=== PATIENT | male | born 1960 | race Caucasian/White ===

== ENCOUNTER 2017-07-05 18:05 | Emergency (ER) | payer BC ==
[2017-07-05] MEDS ORDERED: Acetaminophen/HYDROcodone 325-5 MG Tab PO ONE (18:06)
[2017-07-05 18:12] VITALS: BP 139/84
[2017-07-05] MEDS ORDERED: Take Home: Acetaminophen/HYDROcodone 325-5 MG, 2 Tab Pack PO ONE (19:36)
--- NOTE | 2017-07-05 19:36 | EDM.PDOC ---
ED HPI GENERAL MEDICAL PROBLEM - General Chief Complaint: Lower Extremity Injury/Pain Stated Complaint: left leg pain/swelling Time Seen by Provider: 07/05/17 18:45 Source of Information: Reports: Patient History Limitations: Reports: No Limitations - History of Present Illness INITIAL COMMENTS - FREE TEXT/NARRATIVE: Odilon is a 56 yo male who presents to the ER with concerns of left calf pain just below the knee. States he had the same symptoms a week ago and was seen by Dr. Barrera in clinic. Dr. Barrera ordered an ultrasound and showed a Stokes's cyst with no DVT. He states he was put on a prednisone and after a few days the swelling went down as did the discomfort. Admits today he noticed the swelling returning and is starting to have a lot of discomfort behind the knee. Left Lower Leg Pain Score (Numeric/FACES): 7 - Related Data Allergies Allergy/AdvReac Type Severity Reaction Status Date / Time No Known Allergies Allergy Verified 07/05/17 18:12 Home Meds: Home Meds Allopurinol [Zyloprim] 300 mg PO DAILY 07/15/15 [History] Aspirin [Ecotrin] 81 mg PO DAILY 07/15/15 [History] Atenolol 50 mg PO DAILY 07/15/15 [History] Enalapril Maleate 10 mg PO DAILY 07/15/15 [History] Naproxen 500 mg PO DAILY 07/15/15 [History] Omeprazole 20 mg PO DAILY 07/15/15 [History] Piroxicam 20 mg PO DAILY PRN 08/24/15 [History] Acetaminophen [Tylenol] 325 - 650 mg PO Q6H PRN 06/03/16 [History] Cholecalciferol (Vitamin D3) [Vitamin D3] 5,000 units PO DAILY 06/03/16 [History ] Ascorbate Calcium [Vitamin C] 500 mg PO DAILY 07/05/17 [History] Diethylpropion HCl [Diethylpropion HCl ER] 75 mg PO DAILY 07/05/17 [History] Torsemide 20 mg PO DAILY 07/05/17 [History] Past Medical History Cardiovascular History: Reports: Hypertension Gastrointestinal History: Reports: GERD, PUD Musculoskeletal History: Reports: Arthritis Neurological History: Reports: Migraines - Past Surgical History GI Surgical History: Reports: Colonoscopy, Hernia, Abdominal Musculoskeletal Surgical History: Reports: Knee Replacement Social & Family History - Tobacco Use Smoking Status *Q: Never Smoker - Caffeine Use Caffeine Use: Reports: Soda - Recreational Drug Use Recreational Drug Use: No Review of Systems - Review of Systems Review Of Systems: See Below Constitutional: Reports: No Symptoms Respiratory: Reports: No Symptoms Cardiovascular: Reports: No Symptoms Musculoskeletal: Reports: Leg Pain (posterior calf on left), Muscle Pain (left calf) Neurological: Reports: No Symptoms ED EXAM, GENERAL - Physical Exam Exam: See Below Extremities: Normal Range of Motion, Normal Capillary Refill, Pedal Edema, Leg Pain, Other (tenderness with palpation to left posterior proximal calf). No: Olivia's Sign, Redness Skin Exam: Increased Warmth. No: Erythema, Rash Course - Vital Signs Last Recorded V/S: Last Vital Signs Temp 98.9 F 07/05/17 18:07 Pulse 81 07/05/17 18:07 Resp 16 07/05/17 18:07 BP 139/84 07/05/17 18:07 Pulse Ox 99 07/05/17 18:07 - Orders/Labs/Meds Orders: Active Orders 24 hr Category Date Time Status VL Duplex Lwr Ext Veins Ltd Lt [US] Stat Exams 07/05/17 18:56 Taken Meds: Medications Discontinued Medications Generic Name Dose Route Start Last Admin Trade Name Freq PRN Reason Stop Dose Admin Hydrocodone Bitart/Acetaminophen 2 packet 07/05/17 19:36 Take Home: Acetaminophen/Hydrocod, 2 Tab Pack PO 07/05/17 19:37 ONETIME ONE Departure - Departure Time of Disposition: 19:52 Disposition: Home, Self-Care 01 Clinical Impression: Stokes's cyst Qualifiers: Laterality: left Qualified Code(s): M71.22 - Synovial cyst of popliteal space [ Stokes], left knee - Discharge Information Instructions: Stokes Cyst Referrals: Maroc Barrera MD [Primary Care Provider] - Forms: ED Department Discharge Additional Instructions: 1) Rest, keep leg elevated 2) May wear KEY wrap as well for discomfort 3) [place] 5/325 - 1 tablet every 6 hours as needed for pain 4) If pain worsens or any concerns, recommend follow up. May need referral to ortho for possible aspiration or injection. - Problem List & Annotations (1) Stokes's cyst SNOMED Code(s): 77454513 Code(s): M71.20 - SYNOVIAL CYST OF POPLITEAL SPACE [STOKES], UNSPECIFIED KNEE Status: Acute Current Visit: Yes Qualifiers: Laterality: left Qualified Code(s): M71.22 - Synovial cyst of popliteal space [Kike], left knee - Problem List Review Problem List Initiated/Reviewed/Updated: Yes - My Orders Last 24 Hours: My Active Orders 07/05/17 18:56 VL Duplex Lwr Ext Veins Ltd Lt [US] Stat - Assessment/Plan Last 24 Hours: My Active Orders 07/05/17 18:56 VL Duplex Lwr Ext Veins Ltd Lt [US] Stat Plan: Ultrasound showed no DVT. Showed cyst with extravasation. No concerning findings. Will discharge home.
== END 2017-07-05 20:00 | disposition home or self-care (01) ==
LOC: CC.ED 18:05
DX: M71.22 Synovial cyst of popliteal space [Baker], left knee (principal); Z79.82 Long term (current) use of aspirin; Z79.899 Other long term (current) drug therapy
CPT/HCPCS: 93971; A9270; 99283

== ENCOUNTER → 2017-08-01 | Day surgery (SDC) | payer BC ==
[~2017-08-01] MED LIST: Acetaminophen/HYDROcodone 325-5 MG Tab PO PRN; Bupivacaine 0.25% 10 ML SDV INJECT ONE; Bupivacaine 0.25% 10 ML SDV ONE; Cefepime 2 GM Vial IV ONE; Ketorolac 30 MG/ML SDV IVPUSH ONE; Lactated Ringers 1,000 ML IV SCH; Lidocaine 2% 20 ML MDV INJECT ONE; Lidocaine 2% 20 ML MDV ONE; Ondansetron 4 MG/2 ML SDV IV ONE; Ondansetron 4 MG/2 ML SDV IVPUSH PRN; Propofol 200 MG/20 ML SDV IV ONE; Water For Injection, Sterile 10 ML SDV ONE; ceFAZolin 1 GM Vial IVPUSH ONE; ceFAZolin 1 GM Vial ONE; fentaNYL 100 MCG/2 ML SDV IV ONE; fentaNYL 100 MCG/2 ML SDV IVPUSH PRN
[2017-08-01 17:54] VITALS: BP 112/69
--- NOTE | 2017-08-01 20:33 | OR ---
DATE OF OPERATION: 08/01/2017 PREOPERATIVE DIAGNOSIS: UMBILICAL HERNIA. POSTOPERATIVE DIAGNOSIS: UMBILICAL HERNIA. SURGEON: Fuentes Araya MD PROCEDURE: REPAIR OF UMBILICAL HERNIA. ANESTHESIA: General. DESCRIPTION OF PROCEDURE: After the patient was anesthetized satisfactorily, the patient's abdomen was prepped with chlorhexidine. The patient was given sterile drapes. A skin incision was made in the midline just above the bellybutton and surrounding it. Then, a skin incision was carried down to the hernia sac. Hernia sac was dissected out, it was opened, it was full of omentum. Omentum was dissected out from the hernia sac and reduced back into the peritoneal cavity. Hernia sac was removed, but it was not sent to the lab. Fascial defect all around was dissected out and then it was closed with 0 Ethibond [id number] sutures. Subcutaneous tissue was then closed with 3-0 Vicryl running sutures. The skin was closed with 4-0 Vicryl subcuticular sutures. The patient was given sterile dressing. He tolerated the procedure well and left the operating room in satisfactory condition. JAKOB/YAHAIRA /[id number]
== END ==
LOC: CC.SDS 10:58
PROVIDERS: ATTEND Surgery
DX: K42.9 Umbilical hernia without obstruction or gangrene (principal); N40.0 Benign prostatic hyperplasia without lower urinary tract symptoms; K21.9 Gastro-esophageal reflux disease without esophagitis; I10 Essential (primary) hypertension; E78.5 Hyperlipidemia, unspecified; E55.9 Vitamin D deficiency, unspecified; Z79.899 Other long term (current) drug therapy; Z79.82 Long term (current) use of aspirin; Z98.890 Other specified postprocedural states; Z72.0 Tobacco use
CPT/HCPCS: 49585; A9270; J0692; J1885; J2405; J2704; J3010; J7120